=== PATIENT | male | born 1960 | race African-American/Black ===

== ENCOUNTER 2020-08-30 15:54 | Emergency (ER) | payer MEDICARE, MEDICAID ==
[2020-08-30 16:06] VITALS: BP 171/99
--- NOTE | 2020-08-30 16:47 | ER Document Report ---
HPI - HPI Time Seen by Provider: 08/30/20 16:34 Context: Patient is a 60-year-old male with a history of diabetes, hypertension, and pituitary problems who presents emergency department with left thumb pain. Patient had noticed swelling to his left thumb a couple of days ago. States that he noticed it white. Feels that there is pressure in his finger. Patient is right-handed. - ROS Systems Reviewed and Negative: Yes All other systems reviewed and negative - CONSTITUTIONAL Constitutional: DENIES: Fever, Chills - CARDIOVASCULAR Cardiovascular: DENIES: Chest pain - RESPIRATORY Respiratory: DENIES: Trouble Breathing, Coughing - DERM Skin Color: Normal Skin Problems: Pustule - See HPI. Past Medical History - General Information source: Patient - Social History Smoking Status: Unknown if Ever Smoked Family History: Reviewed & Not Pertinent Vertical Provider Document - CONSTITUTIONAL Agree With Documented VS: Yes Exam Limitations: No Limitations General Appearance: No Apparent Distress - HEENT HEENT: Atraumatic, Normocephalic, PERRLA - RESPIRATORY Respiratory: No Respiratory Distress - CARDIOVASCULAR Cardiovascular: Regular Rate, Regular Rhythm Course - Re-evaluation Re-evalutation: 08/30/20 23:03 Paronychia was drained. See procedure note. Patient tolerated procedure well. Patient will be placed on Bactrim and Keflex. He is in agreement with this plan. Follow-up precautions were given. Verbal discharge instructions were given to the patient. They verbalized understanding. They are stable for discharge. - Vital Signs Vital signs: Temp Pulse Resp BP Pulse Ox 97.9 F 70 16 171/99 H 96 08/30/20 16:02 08/30/20 16:02 08/30/20 16:02 08/30/20 16:02 08/30/20 16:02 - Laboratory Results Critical Laboratory Results Reviewed: No Critical Results - Radiology Results Critical Radiology Results Reviewed: No Critical Results Procedures - Incision and Drainage Left Thumb Type: Simple, Single I&D procedure: Betadine prep applied Incision Method: Incision made with needle Amount/type of drainage: Purulent/3 to 4 mL Hands back picture: 1 - Paronychia Discharge - Discharge Clinical Impression: Paronychia Condition: Stable Disposition: HOME, SELF-CARE Additional Instructions: You were seen today in the emergency department for thumb pain. You had an abscess at your fingernail called a paronychia, which was drained here in the emergency department. Take your antibiotics as prescribed. Follow-up with your primary care provider in the next 3 to 5 days. Soak your finger in the surgical scrub twice a day. Keep the area clean and dry. Prescriptions: Sulfamethoxazole/Trimethoprim [Bactrim Ds Tablet] 1 each PO BID 7 Days #14 t ablet Cephalexin Monohydrate [Keflex 500 mg Capsule] 500 mg PO Q6H 7 Days #28 capsule Referrals: ANA SCOTT PA [Primary Care Provider] - Follow up as needed
== END 2020-08-30 17:14 | disposition home or self-care (01) ==
LOC: ER 15:54
DX: L03.012 Cellulitis of left finger (principal); M79.645 Pain in left finger(s); E11.9 Type 2 diabetes mellitus without complications; I10 Essential (primary) hypertension
CPT/HCPCS: 87070; 87075; 87077; 87205; 99283